=== PATIENT | male | born 1990 | race Two or more races ===

== ENCOUNTER → 2024-03-18 | Outpatient (CLI) | payer OTHER, SELFPAY ==
--- NOTE | 2024-03-18 13:30 | XR_ITS ---
Examination: CT maxillofacial, without intravenous contrast. 2-D sagittal reconstructions. 3-D reconstructions. Date and time of exam:March 18, 2024 1337 hours INDICATIONS: Sinus pressure and pain 11 years CTDI: vol (mGy):7.47 DLP: (mGycm):112 Technique: Multiple axial images of maxillofacial region, 3.0 mm slice thickness. 2-D sagittal and coronal reconstructions. 3-D reconstructions. Low dose protocols were performed. One or more of the following dose reduction techniques were used; automated exposure control, adjustment of the mA and/or KV according to patient size, use of iterative reconstruction technique. Findings: Trace mucosal thickening frontal air cells Mild mucosal thickening ethmoid air cells No occlusion ostiomeatal complexes Mucosal thickening up to 2 mm in the right maxillary antrum Sphenoid air cells clear No fluid levels No retention cysts Symmetrical mastoid aeration No nasopharyngeal mass Negative for otitis media No visualized cerebral mass IMPRESSION: Mild sinusitis as above.
== END | disposition home or self-care (01) ==
PROVIDERS: Referring Provider Internal Medicine Sleep Medicine; Visit Provider Internal Medicine Sleep Medicine
DX: J32.9 Chronic sinusitis, unspecified (principal)
CPT/HCPCS: 70486